=== PATIENT | female | born 1975 | race Two or more races ===

== ENCOUNTER 2018-09-14 10:21 | Day surgery (SDC) | payer BC ==
[2018-09-10 13:29] VITALS: BMI 42.0
[2018-09-14] MEDS ORDERED: oxyCODONE HCL 5 MG TABLET PO PRN (13:45)
[2018-09-14] MEDS ORDERED: LACTATED RINGERS SOLUTION 1,000 ML IV SCH (13:45)
[2018-09-14] MEDS ORDERED: ONDANSETRON 4 MG/2 ML VIAL IVPUSH PRN (13:45)
[2018-09-14] MEDS ORDERED: MIDAZOLAM HCL 2 MG/2 ML SINGLE DOSE VIAL ONE (14:06)
[2018-09-14] MEDS ORDERED: BUPIVACAINE HCL/PF 2.5 MG/ML - 30 ML VIAL IJ ONE (14:11)
[2018-09-14] MEDS ORDERED: PROPOFOL 20 ML ONE ×2 (14:20)
[2018-09-14] MEDS ORDERED: DEXAMETHASONE SOD PHOSPHATE 4 MG/1 ML VIAL ONE (14:25)
[2018-09-14] MEDS ORDERED: ONDANSETRON 4 MG/2 ML VIAL ONE ×2 (14:25→15:24)
[2018-09-14] MEDS ORDERED: KETOROLAC TROMETHAMINE 30 MG/1 ML VIAL ONE (14:37)
[2018-09-14] MEDS ORDERED: ceFAZolin SODIUM 1 GM VIAL ONE (14:37)
[2018-09-14] MEDS ORDERED: PROMETHAZINE HCL 25 MG/1 ML VIAL IVPUSH PRN (16:22)
[2018-09-14 17:05] VITALS: BP 134/75; PULSE 81; TEMP 98
--- NOTE | 2018-09-17 12:49 | OP ---
DATE OF OPERATION: 09/14/2018 SURGEON: Isiah Lambert MD CT SCAN SPECIAL PROCEDURES TECHNOLOGIST: CHARITO Walls PREOPERATIVE DIAGNOSES: 1. Right knee medial and lateral meniscal tear. 2. Right knee cartilage tear. 3. Right knee synovitis. POSTOPERATIVE DIAGNOSES: 1. Right knee medial and lateral meniscal tear. 2. Right knee cartilage tear. 3. Right knee synovitis. PROCEDURE: 1. Right knee arthroscopy with partial meniscectomy medial and lateral meniscus, CPT code 23300. 2. Right knee arthroscopy with chondroplasty and abrasion-plasty, CPT code 2979. 3. Right knee arthroscopy with synovectomy, CPT code 2975. 4. Right knee arthroscopy with lateral release, CPT code 48014. FINDINGS: 1. Medial meniscus body and posterior horn tear, minor. 2. Lateral meniscus posterior horn tear, minor. 3. Synovitis patellofemoral medial and lateral notch area with large and thickened scar tissue lateral and anterolateral portions of the joint. 4. Minimal cartilage changes medial joint line. 5. ACL and PCL intact. 6. Minor grade 1-2 cartilage injury anterior lateral tibial plateau. 7. Central grade 2-4 cartilage injury patella lateral trochlea patella. PROCEDURE: Informed consent was obtained. The patient came to the operating room, where the lower extremity was prepped and draped in a sterile fashion. A tourniquet was placed on the upper thigh, but not inflated. Using standard arthroscopic technique, a lateral incision and portal was made to allow for introduction of the camera into the suprapatellar bursa. This was then taken to the medial joint line, where under direct visualization, a medial incision and portal was made. Excessive synovium noted in the medial, lateral and patellofemoral and notch area was removed by an upbiter, shaver and Bovie cautery. This was found to bring in inflammatory tissue into the joint surface, a source of pain and dysfunction. Probing of the medial and lateral meniscus found tears, as described in the findings. These were removed with the upbiter and shaver and taken back to a stable rim. Grade 2 to 3 degenerative changes were treated with a chondroplasty, removing all flaking surfaces with low-setting Bovie along the periphery to prevent further flaking. Grade 4 changes, as noted, were treated with an abrasoplasty, creating a bleeding surface at the bone/cartilage interface. Aggressive debridement with shaver/austyn created bleeding surface. Micro fracture also done when indicated in findings. Noting patellofemoral joint showed severe constriction along the patella into the patellofemoral trochlea. This was tilted laterally as well. Grade 3-4 changes were also need to be compression across the lateral side. A lateral release was performed from 1 cm superior to 1 cm inferior along the lateral retinaculum underlying for centralization of the patellofemoral joint. All areas of the knee were once again reexamined. The knee was then drained and a single suture was placed in all portals. A sterile dressing was placed and the patient was transferred to the recovery room without complication. The PA listed above was present and assisted at surgery. Their presence was absolutely medically necessary for the completion of the procedure. They helped hold the arthroscopy, pass instruments (and implants when indicated) and the procedure could not have been completed without their assistance. ISIAH LAMBERT M.D. [id number]
--- NOTE | 2018-09-19 18:34 | PATH ---
Surgical Pathology Report Patient Name: NAOMI VALLES [facility]. Rec. #: [id number] /Age/Gender: 1975 (Age: 43) / F Account: [id number] Location: [facility] AMBULATORY Taken: 09/14/2018 Received: 09/14/2018 Reported: 09/19/2018 Physicians: Isiah Amezcua M.D. Specimen(s) Received RIGHT KNEE SHAVINGS Clinical History Right knee internal derangement Final Diagnosis RIGHT KNEE SHAVINGS: FRAGMENTS OF CARTILAGE AND FIBROSYNOVIAL TISSUE WITH REACTIVE AND DEGENERATIVE CHANGE. Electronically Signed Talisha Pereira M.D. Gross Description Received in formalin labeled "right knee shavings" are multiple fragments of white-landry fibrocartilaginous to yellow soft tissue measuring 4 x 3 x 0.8 cm aggregate. Motor [employer]ooter [employer]ic sections are submitted in one cassette. MLSZ/09/17/2018 sankarissa/09/17/2018
== END 2018-09-14 17:00 | disposition home or self-care (01) ==
LOC: FASU 10:21
PROVIDERS: ATTEND Orthopaedic Surgery
PROC: 0MNN4ZZ Release Right Knee Bursa and Ligament, Percutaneous Endoscopic Approach (ICD-10-PCS; 2018-09-14)
PROC: 0SBC4ZZ Excision of Right Knee Joint, Percutaneous Endoscopic Approach (ICD-10-PCS; principal; 2018-09-14 14:46)
DX: S83.241A Other tear of medial meniscus, current injury, right knee, initial encounter (principal); S83.281A Other tear of lateral meniscus, current injury, right knee, initial encounter; S83.8X1A Sprain of other specified parts of right knee, initial encounter; M65.861 Other synovitis and tenosynovitis, right lower leg; X58.XXXA Exposure to other specified factors, initial encounter; Y93.9 Activity, unspecified; Y92.9 Unspecified place or not applicable
CPT/HCPCS: 84703; 88304-TC; 94760

== ENCOUNTER 2022-11-04 08:59 | Day surgery (SDC) | payer BC ==
[2022-10-28 11:48] VITALS: BMI 43.9
[2022-11-04] MEDS ORDERED: BUPIVACAINE HCL/PF 2.5 MG/ML - 30 ML VIAL IJ ONE (11:38)
[2022-11-04] MEDS ORDERED: MIDAZOLAM HCL 2 MG/2 ML SINGLE DOSE VIAL ONE (11:49)
[2022-11-04] MEDS ORDERED: PROPOFOL 40 ML ONE (11:49)
[2022-11-04] MEDS ORDERED: oxyCODONE HCL 5 MG TABLET PO PRN (13:06)
[2022-11-04] MEDS ORDERED: ONDANSETRON 4 MG/2 ML VIAL IVPUSH PRN (13:06)
[2022-11-04] MEDS ORDERED: ONDANSETRON 4 MG/2 ML VIAL ONE (13:15)
[2022-11-04] MEDS ORDERED: LACTATED RINGERS SOLUTION 1,000 ML IV SCH (13:15)
[2022-11-04] MEDS ORDERED: PROMETHAZINE HCL 25 MG/1 ML VIAL ONE (13:16)
[2022-11-04] MEDS: PROMETHAZINE HCL 25 MG/1 ML VIAL IVPB PRN ×2 (13:24→13:42)
[2022-11-04 14:06] VITALS: RESP 18; TEMP 98
[2022-11-04 14:41] VITALS: BP 140/85; PULSE 85
== END 2022-11-04 15:04 | disposition home or self-care (01) ==
LOC: FASU 08:59
PROVIDERS: ATTEND Orthopaedic Surgery
PROC: 0SBD4ZZ Excision of Left Knee Joint, Percutaneous Endoscopic Approach (ICD-10-PCS; principal; 2022-11-04 12:26)
DX: M23.92 Unspecified internal derangement of left knee (principal); M65.862 Other synovitis and tenosynovitis, left lower leg; S83.242A Other tear of medial meniscus, current injury, left knee, initial encounter; S83.282A Other tear of lateral meniscus, current injury, left knee, initial encounter; Y93.9 Activity, unspecified
CPT/HCPCS: 81025; 94760